=== PATIENT | female | born 1990 ===

== ENCOUNTER 2017-06-22 13:28 | Inpatient (IN) | payer OTHER ==
[2017-06-22 13:36] VITALS: BMI 30.1
[2017-06-22] MEDS ORDERED: Sodium Chloride 0.9% 1,000 ML IV ONE (13:50)
[2017-06-22 14:08] LABS: BASO # 0.1 K/uL (0.0-0.2); BASO % 0.4 % (0.0-2.0); EOS % 0.3 % (0.0-4.0); HEMATOCRIT 36.2 % (34.0-47.0); LYMPH # 1.4 K/uL (1.0-4.3); LYMPH % 7.1 % (20.0-40.0); MEAN CELL VOLUME 86.5 fL (81.0-99.0); MEAN CORPUSCULAR HEMOGLOBIN 28.9 pg (27.0-31.0); MEAN CORPUSCULAR HGB CONC 33.4 g/dL (33.0-37.0); MEAN PLATELET VOLUME 9.3 fL (7.2-11.7); MONO # 1.3 K/uL (0.0-0.8); MONO % 6.5 % (0.0-10.0); PLATELET COUNT 288 K/uL (130-400); RED CELL DISTRIBUTION WIDTH 13.2 % (11.5-14.5); WHITE BLOOD COUNT 19.2 K/uL (4.8-10.8)
[2017-06-22 14:16] LABS: RBC URINE 83 /hpf (0-3); URINE BACTERIA RARE (<OCC); URINE BILIRUBIN NEGATIVE (NEGATIVE); URINE BLOOD 2+ (NEGATIVE); URINE COLOR Yellow (YELLOW); URINE GLUCOSE (UA) NORMAL (Normal); URINE KETONE NEGATIVE (NEGATIVE); URINE LEUKOCYTE ESTERASE 3+ Leu/uL (Negative); URINE PROTEIN NEGATIVE (NEGATIVE); URINE UROBILINOGEN NORMAL mg/dL (0.2-1.0); WBC URINE 99 /hpf (0-5)
[2017-06-22] MEDS ORDERED: Sodium Chloride 0.9% 1,000 ML ONE (14:16)
[2017-06-22 14:26] LABS: ALB/GLOB RATIO 1.1 (1.0-2.1); ALKALINE PHOSPHATASE 80 U/L (38-126); ALT/SGPT 31 U/L (9-52); AST/SGOT 24 U/L (14-36); BILIRUBIN,TOTAL 0.6 mg/dL (0.2-1.3); BLOOD UREA NITROGEN 5 mg/dL (7-17); CALCIUM 8.6 mg/dl (8.6-10.4); CARBON DIOXIDE 23 mmol/L (22-30); CHLORIDE 102 mmol/L (98-107); GFR AFRICAN-AMERICAN > 60; GLUCOSE,RANDOM 103 mg/dL (65-105); MAGNESIUM 1.5 mg/dL (1.6-2.3); SODIUM 136 mmol/L (132-148); TOTAL PROTEIN 6.3 g/dL (6.3-8.3)
[2017-06-22 14:40] LABS: NEUTROPHIL 83 % (50-75); REACTIVE LYMPHOCYTES 1 % (0-0); TOTAL CELLS COUNTED 100
[2017-06-22 14:57] LABS: POTASSIUM 3.2 mmol/L (3.6-5.2)
--- NOTE | 2017-06-22 15:06 | US ---
Indication: ? vaginal "leaking", no vaginal bleeding Comparison: None available Technique: Real-time ultrasound was performed through the pelvis. Findings: There is a single living fetus in breech presentation. No amniotic fluid is identified. Posterior placenta. The placenta is not previa. There are no adnexal masses or cysts evident. Cervix length measures approximately 4.5 cm. Measurements and calculations: Fetus has a composite sonographic age of 17 weeks 2 days. This calculation is based on the biparietal diameter, head circumference, abdominal circumference, and femur length. Estimated heart rate 133.9 beats per min. Impression: No amniotic fluid identified. Single living fetus with a composite sonographic age of 17 weeks 2 days. Estimated heart rate 133.9 beats per min. Emergent findings discussed with Irene Chacon on 06/22/17 at 3:03 p.m.
--- NOTE | 2017-06-22 15:07 | US ---
HISTORY: B/L lower abdominal pain radiating to back COMPARISON: None available TECHNIQUE: Sonographic evaluation of the abdomen. FINDINGS: LIVER: Measures 15.6 cm in sagittal dimension. Echogenic liver may be seen in setting of hepatic parenchymal disease or fatty infiltration. No focal hepatic mass identified. The main portal vein appears patent with normal directional flow. No intrahepatic bile duct dilatation. GALLBLADDER: Gallstones. No gallbladder wall thickening. Negative sonographic Carpenter's sign as assessed by the cash processing specialist. COMMON BILE DUCT: Measures 2 mm. PANCREAS: Not well visualized. RIGHT KIDNEY: Measures 11.7 x 5.7 x 6.2cm. No obstructing calculus or hydronephrosis identified. LEFT KIDNEY: Measures 11.1 x 6.1 x 5.4cm. No obstructing calculus or hydronephrosis identified. SPLEEN: Measures approximately 9.9 cm. AORTA: Limited views appear unremarkable. IVC: Limited views appear unremarkable. OTHER FINDINGS: None. IMPRESSION: Echogenic liver may be seen in setting of hepatic parenchymal disease or fatty infiltration. Cholelithiasis.
--- NOTE | 2017-06-22 16:18 | C.PDOC ---
History Of Present Illness 27 y/o female presents to ED with complaints of clear odorless liquid draining vaginally since approximately 5am this morning. Patient states has had several episodes throughout day and reports ultrasound done by private OB last week with unknown results. Patient denies fever, nausea, vomiting, vaginal bleed , back pain or any other complaints at this time. Chief Complaint (Nursing): Female Genitourinary History Per: Patient History/Exam Limitations: no limitations Onset/Duration Of Symptoms: Hrs Current Symptoms Are (Timing): Still Present Past Medical History Reviewed: Historical Data, Nursing Documentation, Vital Signs Vital Signs: Last Vital Signs Temp 96.7 F L 06/22/17 19:40 Pulse 102 H 06/22/17 16:16 Resp 18 06/22/17 16:16 BP 133/82 06/22/17 16:16 Pulse Ox 99 06/22/17 16:25 Family History: States: No Known Family Hx - Social History Hx Alcohol Use: No Hx Substance Use: No Review Of Systems Except As Marked, All Systems Reviewed And Found Negative. Constitutional: Negative for: Fever, Chills Gastrointestinal: Negative for: Nausea, Vomiting, Diarrhea Genitourinary: Positive for: Vaginal Discharge. Negative for: Dysuria Musculoskeletal: Negative for: Back Pain Skin: Negative for: Rash Physical Exam - Physical Exam Appears: Non-toxic, No Acute Distress Skin: Normal Color, Warm, No Rash Head: Atraumatic, Normacephalic Eye(s): bilateral: Normal Inspection, EOMI Oral Mucosa: Moist Cardiovascular: Rhythm Regular Respiratory: Normal Breath Sounds, No Rales, No Rhonchi, No Wheezing Gastrointestinal/Abdominal: Tenderness (Mild lower abdomen), No Guarding, No Rebound Pelvic: Other (Uterus 3cm below fundal height at the umbilicus) Neurological/Psych: Oriented x3, Normal Speech ED Course And Treatment - Laboratory Results Result Diagrams: 06/22/17 14:05 06/22/17 14:05 O2 Sat by Pulse Oximetry: 99 (RA) Pulse Ox Interpretation: Normal - CT Scan/US Abdomen Other Rad Studies (CT/US): Interpreted By Me, Read By Radiologist, Radiology Report Reviewed CT/US Interpretation: FINDINGS: LIVER: Measures 15.6 cm in sagittal dimension. Echogenic liver may be seen in setting of hepatic parenchymal disease or fatty infiltration. No focal hepatic mass identified. The main portal vein appears patent with normal directional flow. No intrahepatic bile duct dilatation. GALLBLADDER: Gallstones. No gallbladder wall thickening. Negative sonographic Carpenter's sign as assessed by the tea taster. COMMON BILE DUCT: Measures 2 mm. PANCREAS: Not well visualized. RIGHT KIDNEY: Measures 11.7 x 5.7 x 6.2cm. No obstructing calculus or hydronephrosis identified. LEFT KIDNEY: Measures 11.1 x 6.1 x 5.4cm. No obstructing calculus or hydronephrosis identified. SPLEEN: Measures approximately 9.9 cm. AORTA: Limited views appear unremarkable. IVC: Limited views appear unremarkable. OTHER FINDINGS: None. IMPRESSION: Echogenic liver may be seen in setting of hepatic parenchymal disease or fatty infiltration. Cholelithiasis. OB Other Rad Studies (CT/US): Interpreted By Me, Read By Radiologist, Radiology Report Reviewed CT/US Interpretation: Indication: ? vaginal "leaking", no vaginal bleeding. Comparison: None available. Technique: Real-time ultrasound was performed through the pelvis. Findings: There is a single living fetus in breech presentation. No amniotic fluid is identified. Posterior placenta. The placenta is not previa. There are no adnexal masses or cysts evident. Cervix length measures approximately 4.5 cm. Measurements and calculations: Fetus has a composite sonographic age of 17 weeks 2 days. This calculation is based on the biparietal diameter, head circumference, abdominal circumference, and femur length. Estimated heart rate 133.9 beats per min. Impression: No amniotic fluid identified. Single living fetus with a composite sonographic age of 17 weeks 2 days. Estimated heart rate 133.9 beats per min. Emergent findings discussed with Irene Chacon on 06/22/17 at 3:03 p.m. Medical Decision Making Medical Decision Making: Spoke with Ob contract modeler Dr. Castañeda who came down to examine patient Patient agrees to admission for further management Disposition - Disposition Disposition: HOSPITALIZED Disposition Time: 16:00 Condition: STABLE - Clinical Impression Clinical Impression: NO AMIONIC FLUID ABDOMINAL PAIN - Scribe Statement The provider has reviewed the documentation as recorded by the Fuentesibe Kate Gomez All medical record entries made by the Fuentesibpedro were at my direction and personally dictated by me. I have reviewed the chart and agree that the record accurately reflects my personal performance of the history, physical exam, medical decision making, and the department course for this patient. I have also personally directed, reviewed, and agree with the discharge instructions and disposition.
--- NOTE | 2017-06-22 17:34 | OBHP ---
Datetime: 06/22/2017 17:25 IP Adm Impression: , intrauterine ; Ruptured Membranes IP Admit Plan: Admit to unit Admit Comment, IP Provider: at 18weeks came with lof started qat 5 am. pt thought having urinat ion.no pain no vb. pt is going to dr olson. obhx 1 x pmh den med pnv all nkda psh den soch den sse +pooling sono breech/post/no amniotic fluid. a/p at 18weeks pprom/ non viable prega dmit to l_d. pt is crying and not ready for induction. pt called her pmd who told her that she sh uld stay here. she wanted to go to [facility], [place]. pt was told if she doesnot want any induction she can sig n out AMA. pt after long discusion with family decided to stay. amp/geb/clin labs will start induction with cytotec when pateint is ready pain management Anticipate non viable delivery Pelvic Type - PN: Adequate Extremities - PN: Normal Abdomen - PN: Normal Back - PN: Normal Breast - PN: Not Done Lungs - PN: Normal Heart - PN: Normal Thyroid - PN: Not Done Neurologic - PN: Normal HEENT - PN: Normal General - PN: Normal Comments, ACOG Physical Exam: 18weeks gravid ext no edema,no calf ten sse +pooling EGA AdmitDate IP: 18.6 Vital Signs Provider: Reviewed; Within Normal Limits IP Indication for Induction: Other IP Indication for Induction Oth: pprom IP Chief Complaint: Suspected ruptured membranes Dilatation, Provider: 0 Effacement, Provider: 0 Station, Provider: -3 Genitourinary Exam: Normal DTRs - PN: Normal
[2017-06-22] MEDS: Clindamycin 600 MG in Sodium Chloride 0.9% 100 ML IV SCH (17:37)
--- NOTE | 2017-06-22 18:57 | OBPN ---
Datetime: 06/22/2017 18:54 IP Progress Note Comment: trnalation with phone wa done. test and balance engineer [phone] edwige. the management was discussed in detail with alternatives .all the questions were answered. pt is c rying and not ready for indction. pt was told when she is ready we can start induction with cytotec. cont iv antibiotics pain management all questions answered with dispensing optician apprentice. pt understand and agrees Datetime: 06/22/2017 17:25 Vital Signs Provider: Reviewed; Within Normal Limits Dilatation, Provider: 0 Effacement, Provider: 0 Station, Provider: -3
[2017-06-22] MEDS ORDERED: Nalbuphine 20 mg/ml Inj (1 ml) ONE (23:45)
[2017-06-22] MEDS: Nalbuphine 20 mg/ml Inj (1 ml) IVP PRN (23:55)
[2017-06-23] MEDS: Nalbuphine 20 mg/ml Inj (1 ml) IVP PRN (01:05)
[2017-06-23] MEDS: Clindamycin 600 MG in Sodium Chloride 0.9% 100 ML IV SCH ×2 (01:30→09:56)
[2017-06-23] MEDS ORDERED: Oxycodone/Acetaminophen 5/325 mg Tab PO PRN ×2 (02:40)
--- NOTE | 2017-06-23 02:42 | OBDS ---
MATERNAL INFORMATION Provider Comments: baby deliverd spontaneously along with placenta. no coiom. cord was intact. no laceration. baby send to pathology LABOR SUMMARY EDC: 11/17/2017 00:00 LABOR INFORMATION Cervical Ripening Agents: Cytotec @ (Annotations: 200MG GIVEN PO )
[2017-06-23] MEDS ORDERED: Oxytocin 30 UNIT 30 UNITS/500 ML BAG IV SCH (02:45)
[2017-06-23 06:58] LABS: BASO # 0.1 K/uL (0.0-0.2); BASO % 0.2 % (0.0-2.0); HEMATOCRIT 33.6 % (34.0-47.0); LYMPH # 1.7 K/uL (1.0-4.3); MEAN CELL VOLUME 86.5 fL (81.0-99.0); MEAN CORPUSCULAR HEMOGLOBIN 29.4 pg (27.0-31.0); MEAN CORPUSCULAR HGB CONC 33.9 g/dL (33.0-37.0); MEAN PLATELET VOLUME 9.2 fL (7.2-11.7); MONO # 1.9 K/uL (0.0-0.8); MONO % 6.5 % (0.0-10.0); PLATELET COUNT 292 K/uL (130-400); RED CELL DISTRIBUTION WIDTH 13.3 % (11.5-14.5); WHITE BLOOD COUNT 28.4 K/uL (4.8-10.8)
[2017-06-23 07:12] LABS: ALB/GLOB RATIO 1.2 (1.0-2.1); ALKALINE PHOSPHATASE 71 U/L (38-126); ALT/SGPT 29 U/L (9-52); AST/SGOT 16 U/L (14-36); BILIRUBIN,TOTAL 0.4 mg/dL (0.2-1.3); BLOOD UREA NITROGEN 5 mg/dL (7-17); CALCIUM 8.4 mg/dl (8.6-10.4); CARBON DIOXIDE 24 mmol/L (22-30); CHLORIDE 103 mmol/L (98-107); GFR AFRICAN-AMERICAN > 60; GLUCOSE,RANDOM 96 mg/dL (65-105); POTASSIUM 3.9 mmol/L (3.6-5.2); SODIUM 136 mmol/L (132-148); TOTAL PROTEIN 5.6 g/dL (6.3-8.3)
[2017-06-23 09:36] LABS: NEUTROPHIL 82 % (50-75); REACTIVE LYMPHOCYTES 2 % (0-0); TOTAL CELLS COUNTED 100
[2017-06-24 11:38] LABS: BASO % 0.3 % (0.0-2.0); EOS # 0.1 K/uL (0.0-0.7); EOS % 0.9 % (0.0-4.0); HEMATOCRIT 35.9 % (34.0-47.0); LYMPH # 2.3 K/uL (1.0-4.3); LYMPH % 15.9 % (20.0-40.0); MEAN CELL VOLUME 87.2 fL (81.0-99.0); MEAN CORPUSCULAR HEMOGLOBIN 28.8 pg (27.0-31.0); MEAN PLATELET VOLUME 9.1 fL (7.2-11.7); MONO # 1.1 K/uL (0.0-0.8); MONO % 7.3 % (0.0-10.0); RED CELL DISTRIBUTION WIDTH 13.2 % (11.5-14.5); WHITE BLOOD COUNT 14.7 K/uL (4.8-10.8)
--- NOTE | 2017-06-24 13:26 | CP.PCM.DIS ---
Provider - Provider Date of Admission: 06/22/17 16:51 Attending physician: Leon Castañeda MD Time Spent in preparation of Discharge (in minutes): 20 Diagnosis - Discharge Diagnosis (1) Spontaneous Status: Resolved Priority: High Onset Date: ~06/22/17 Comment: Status post uterine evacuation (2) premature rupture of membranes (PPROM) delivered, current hospitalization Status: Acute Priority: High Onset Date: ~06/22/17 Comment: Status post uterine evacuation (3) Leukocytosis, unspecified Status: Acute Priority: High Onset Date: ~06/22/17 Comment: Resolving Hospital Course - Lab Results Lab Results: Micro Results 06/22/17 Unknown Urine Urine Culture - Final No Growth (<1,000 CFU/ML) Most Recent Lab Values WBC 14.7 K/uL (4.8-10.8) H 06/24/17 11:43 RBC 4.12 Mil/uL (3.80-5.20) 06/24/17 11:43 Hgb 11.8 g/dL (11.0-16.0) 06/24/17 11:43 Hct 35.9 % (34.0-47.0) 06/24/17 11:43 MCV 87.2 fL (81.0-99.0) 06/24/17 11:43 MCH 28.8 pg (27.0-31.0) 06/24/17 11:43 MCHC 33.0 g/dL (33.0-37.0) 06/24/17 11:43 RDW 13.2 % (11.5-14.5) 06/24/17 11:43 Plt Count 295 K/uL (130-400) 06/24/17 11:43 MPV 9.1 fL (7.2-11.7) 06/24/17 11:43 Neut % (Auto) 75.6 % (50.0-75.0) H 06/24/17 11:43 Lymph % (Auto) 15.9 % (20.0-40.0) L 06/24/17 11:43 [place] % (Auto) 7.3 % (0.0-10.0) 06/24/17 11:43 Eos % (Auto) 0.9 % (0.0-4.0) 06/24/17 11:43 Baso % (Auto) 0.3 % (0.0-2.0) 06/24/17 11:43 Neut # 11.1 K/uL (1.8-7.0) H 06/24/17 11:43 Lymph # 2.3 K/uL (1.0-4.3) 06/24/17 11:43 [place] # 1.1 K/uL (0.0-0.8) H 06/24/17 11:43 Eos # 0.1 K/uL (0.0-0.7) 06/24/17 11:43 Baso # 0.0 K/uL (0.0-0.2) 06/24/17 11:43 Neutrophils % (Manual) 82 % (50-75) H 06/23/17 06:47 Band Neutrophils % 5 % (0-2) H 06/23/17 06:47 Lymphocytes % (Manual) 7 % (20-40) L 06/23/17 06:47 Reactive Lymphs % 2 % (0-0) H 06/23/17 06:47 Monocytes % (Manual) 4 % (0-10) 06/23/17 06:47 Platelet Estimate Normal (NORMAL) 06/23/17 06:47 RBC Morphology Normal 06/22/17 14:05 Basophilic Stippling Slight 06/23/17 06:47 PT 11.1 SECONDS (9.7-12.2) 06/22/17 15:26 INR 1.0 06/22/17 15:26 APTT 27 SECONDS (21-34) 06/22/17 15:26 Sodium 136 mmol/L (132-148) 06/23/17 06:47 Potassium 3.9 mmol/L (3.6-5.2) 06/23/17 06:47 Chloride 103 mmol/L (98-107) 06/23/17 06:47 Carbon Dioxide 24 mmol/L (22-30) 06/23/17 06:47 Anion Gap 12 (10-20) 06/23/17 06:47 BUN 5 mg/dL (7-17) L 06/23/17 06:47 Creatinine 0.5 MG/DL (0.7-1.2) L 06/23/17 06:47 Est GFR ( Amer) > 60 06/23/17 06:47 Est GFR (Non-Af Amer) > 60 06/23/17 06:47 Random Glucose 96 mg/dL (65-105) 06/23/17 06:47 Calcium 8.4 mg/dl (8.6-10.4) L 06/23/17 06:47 Magnesium 1.5 mg/dL (1.6-2.3) L 06/22/17 14:05 Total Bilirubin 0.4 mg/dL (0.2-1.3) 06/23/17 06:47 AST 16 U/L (14-36) 06/23/17 06:47 ALT 29 U/L (9-52) 06/23/17 06:47 Alkaline Phosphatase 71 U/L (38-126) 06/23/17 06:47 Total Protein 5.6 g/dL (6.3-8.3) L 06/23/17 06:47 Albumin 3.0 g/dL (3.5-5.0) L 06/23/17 06:47 Globulin 2.5 gm/dL (2.2-3.9) 06/23/17 06:47 Albumin/Globulin Ratio 1.2 (1.0-2.1) 06/23/17 06:47 Lipase 29 U/L (23-300) 06/22/17 14:05 Beta HCG, Quant 8621.80 mIU/ML 06/22/17 14:05 Urine Color Yellow (YELLOW) 06/22/17 14:09 Urine Clarity Hazy (Clear) 06/22/17 14:09 Urine pH 6.0 (5.0-8.0) 06/22/17 14:09 Ur Specific [place] 1.018 (1.003-1.030) 06/22/17 14:09 Urine Protein Negative mg/dL (NEGATIVE) 06/22/17 14:09 Urine Glucose (UA) Normal mg/dL (Normal) 06/22/17 14:09 Urine Ketones Negative mg/dL (NEGATIVE) 06/22/17 14:09 Urine Blood 2+ (NEGATIVE) H 06/22/17 14:09 Urine Nitrate Negative (NEGATIVE) 06/22/17 14:09 Urine Bilirubin Negative (NEGATIVE) 06/22/17 14:09 Urine Urobilinogen Normal mg/dL (0.2-1.0) 06/22/17 14:09 Ur Leukocyte Esterase 3+ Ney/uL (Negative) H 06/22/17 14:09 Urine WBC (Auto) 99 /hpf (0-5) H 06/22/17 14:09 Urine RBC (Auto) 83 /hpf (0-3) H 06/22/17 14:09 Ur Squamous Epith Cells 8 /hpf (0-5) H 06/22/17 14:09 Urine Bacteria Rare (<OCC) 06/22/17 14:09 RPR Nonreactive (NONREACTIVE) 06/22/17 17:10 HIV 1&2 Antibody Screen Negative (NEGATIVE) 06/22/17 17:10 Blood Type O POSITIVE 06/22/17 15:26 Antibody Screen Negative 06/22/17 15:26 - Hospital Course Hospital Course: 27 y.o. , at 17weeks 2 days, admitted 06/22/17 with spontaneous rupture of membranes, confirmed by ultrasound. Patient received cytotec; fetus delivered without incident. WBC elevated to 28.4 - maximum; received triple antibiotics (ampicillin, gentamicin, clindamycin). HD#3 WBC declined to 14.7. Patient asymptomatic and remained afebrile throughout hospital course. Discharged home in stable condition. - Date & Time of H&P Date of H&P: 06/22/17 Time of H&P: 15:00 Discharge Exam - Head Exam Head Exam: ATRAUMATIC - Eye Exam Eye Exam: Normal appearance - Neck Exam Neck exam: Full Rom - Respiratory Exam Respiratory Exam: NORMAL BREATHING PATTERN, UNREMARKABLE - Cardiovascular Exam Cardiovascular Exam: REGULAR RHYTHM - GI/Abdominal Exam GI & Abdominal Exam: Normal Bowel Sounds, Soft Additional comments: Non distended. Minimal fundal tenderness. Fundus approx 16 weeks, firm, mobile. - Exam Additional comments: No vaginal bleeding - Extremities Exam Extremities exam: full ROM, normal inspection - Neurological Exam Neurological exam: Alert, Oriented x3 - Psychiatric Exam Psychiatric exam: Normal Affect (Appropriately saddened) - Skin Skin Exam: Dry, Intact, Normal Color, Warm Discharge Plan - Discharge Medications Prescriptions: Amoxicillin/Clavulanate [Augmentin 875 MG-125 MG] 1 tab PO BID #7 tab - Follow Up Plan Condition: STABLE Disposition: HOME/ ROUTINE Instructions: Depression (GEN), Postoperative Bleeding (DC)
[2017-06-24 17:27] VITALS: BP 114/67; PULSE 98; RESP 20; TEMP 99.1; O2SAT 98
== END 2017-06-24 13:24 | disposition home or self-care (01) | DRG 380 ==
LOC: C.ER 13:28 → C.4D 15:56 → OBSVTOIN 16:51 → C.4M 06-23 11:28
PROVIDERS: ADMIT Obstetrics & Gynecology; ATTEND Obstetrics & Gynecology
PROC: 3E0P7GC Introduction of Other Therapeutic Substance into Female Reproductive, Via Natural or Artificial Opening (ICD-10-PCS; principal; 2017-06-22)
DX: O03.9 Complete or unspecified spontaneous abortion without complication (principal); O26.62 Liver and biliary tract disorders in childbirth; O42.919 Preterm premature rupture of membranes, unspecified as to length of time between rupture and onset of labor, unspecified trimester; O99.12 Other diseases of the blood and blood-forming organs and certain disorders involving the immune mechanism complicating childbirth; D72.829 Elevated white blood cell count, unspecified; K80.20 Calculus of gallbladder without cholecystitis without obstruction; O32.1XX0 Maternal care for breech presentation, not applicable or unspecified; Z3A.18 18 weeks gestation of pregnancy

== ENCOUNTER 2017-08-27 00:13 | Emergency (ER) | payer MEDICAID, OTHER ==
[2017-08-27 00:13] VITALS: BMI 30.1
[2017-08-27 00:31] VITALS: TEMP 97.9
[2017-08-27 00:42] LABS: RBC URINE 1 /hpf (0-3); URINE BILIRUBIN NEGATIVE (NEGATIVE); URINE BLOOD 2+ (NEGATIVE); URINE COLOR Colorless (YELLOW); URINE GLUCOSE (UA) NORMAL (Normal); URINE KETONE NEGATIVE (NEGATIVE); URINE LEUKOCYTE ESTERASE NEG Leu/uL (Negative); URINE PROTEIN NEGATIVE (NEGATIVE); URINE UROBILINOGEN NORMAL mg/dL (0.2-1.0); WBC URINE < 1 /hpf (0-5)
--- NOTE | 2017-08-27 00:43 | C.PDOC ---
History Of Present Illness Patient presents to the ED with complaints of abdominal pain for one day. Patient is 7 weeks and denies fever, chills, nausea, vomiting, dysuria , or vaginal bleeding. Time Seen by Provider: 08/27/17 00:42 Chief Complaint (Nursing): Abdominal Pain History Per: Patient History/Exam Limitations: no limitations Onset/Duration Of Symptoms: Days (1 day ) Current Symptoms Are (Timing): Still Present Location Of Pain/Discomfort: Suprapubic Radiation Of Pain To:: None Quality Of Discomfort: Other (discomfort ) Recent travel outside of the [place]: No Abnormal Vaginal Bleeding: No Past Medical History Reviewed: Historical Data, Nursing Documentation, Vital Signs Vital Signs: Last Vital Signs Temp 97.9 F 08/27/17 00:25 Pulse 81 08/27/17 00:25 Resp 20 08/27/17 00:25 BP 130/73 08/27/17 00:25 Pulse Ox 98 08/27/17 02:49 - Medical History PMH: Denies: Depression, Diabetes - [facility] Procedures INTRODUCE OF OTH THERAP SUBST INTO FEM REPROD, VIA OPENING (06/22/17) Family History: States: Unknown Family Hx - Social History Hx Alcohol Use: No Hx Substance Use: No - Immunization History Hx Tetanus Toxoid Vaccination: No Hx Influenza Vaccination: No Hx Pneumococcal Vaccination: No Review Of Systems Constitutional: Negative for: Fever, Chills Gastrointestinal: Positive for: Abdominal Pain. Negative for: Nausea, Vomiting Genitourinary: Negative for: Dysuria, Hematuria, Vaginal Bleeding Physical Exam - Physical Exam Appears: Non-toxic, No Acute Distress Skin: Warm, Dry Head: Atraumatic Eye(s): bilateral: Normal Inspection Oral Mucosa: Moist Neck: Supple Chest: Symmetrical, No Deformity Cardiovascular: Rhythm Regular, No Murmur Respiratory: No Rales, No Rhonchi, No Wheezing Gastrointestinal/Abdominal: Soft, Tenderness (mild suprapubic discomfort ), No Distention, No Guarding, No Rebound Neurological/Psych: Oriented x3 ED Course And Treatment - Laboratory Results Result Diagrams: 08/27/17 01:06 08/27/17 01:06 O2 Sat by Pulse Oximetry: 98 (RA) Pulse Ox Interpretation: Normal Progress Note: Labs and transvaginal US was ordered. Patient was given IV fluids. Reevaluation Time: 04:08 Reassessment Condition: Improved Disposition Counseled Patient/Family Regarding: Studies Performed, Diagnosis, Need For Followup - Disposition Referrals: Heriberto Sow MD [Staff Provider] - Disposition: HOME/ ROUTINE Disposition Time: 00:43 Condition: FAIR Instructions: Threatened Miscarriage (ED), Subchorionic Hemorrhage (ED) Forms: [employer] (Divehi) Print Language: HEBREW - Clinical Impression Clinical Impression: Threatened , Subchorionic hemorrhage - Scribe Statement The provider has reviewed the documentation as recorded by the Scribe Bettina Patrick All medical record entries made by the Scribe were at my direction and personally dictated by me. I have reviewed the chart and agree that the record accurately reflects my personal performance of the history, physical exam, medical decision making, and the department course for this patient. I have also personally directed, reviewed, and agree with the discharge instructions and disposition.
[2017-08-27] MEDS ORDERED: Sodium Chloride 0.9% 1,000 ML IV ONE (00:45)
[2017-08-27 01:16] LABS: BASO # 0.1 K/uL (0.0-0.2); BASO % 0.4 % (0.0-2.0); EOS # 0.1 K/uL (0.0-0.7); EOS % 0.9 % (0.0-4.0); HEMATOCRIT 40.7 % (34.0-47.0); LYMPH # 3.5 K/uL (1.0-4.3); LYMPH % 28.4 % (20.0-40.0); MEAN CELL VOLUME 85.9 fL (81.0-99.0); MEAN CORPUSCULAR HEMOGLOBIN 28.4 pg (27.0-31.0); MONO # 1.1 K/uL (0.0-0.8); RED CELL DISTRIBUTION WIDTH 13.1 % (11.5-14.5); WHITE BLOOD COUNT 12.2 K/uL (4.8-10.8)
[2017-08-27 01:21] LABS: CHLORIDE 100 mmol/L (98-107); POTASSIUM 4.1 mmol/L (3.6-5.2); SODIUM 133 mmol/L (132-148)
[2017-08-27 01:23] LABS: BILIRUBIN,TOTAL 0.5 mg/dL (0.2-1.3); GFR AFRICAN-AMERICAN > 60
[2017-08-27 01:24] LABS: ALB/GLOB RATIO 1.1 (1.0-2.1); ALKALINE PHOSPHATASE 63 U/L (38-126); ALT/SGPT 34 U/L (9-52); AST/SGOT 27 U/L (14-36); BLOOD UREA NITROGEN 12 mg/dL (7-17); CARBON DIOXIDE 23 mmol/L (22-30); GLUCOSE,RANDOM 76 mg/dL (65-105); TOTAL PROTEIN 7.7 g/dL (6.3-8.3)
[2017-08-27 01:25] LABS: CALCIUM 9.3 mg/dl (8.6-10.4)
--- NOTE | 2017-08-27 04:04 | US ---
EXAM: US , Transvaginal CLINICAL HISTORY: 27 years old, female; Pain; complicated by abdominal or pelvic pain; Lower; First trimester; Gestational age or lmp: 06-25-2017; ; Additional info: 7 weeks preg, abd pain, cramps TECHNIQUE: Real-time transvaginal obstetrical ultrasound of the maternal pelvis and a first trimester with image documentation. Transvaginal imaging was used for better evaluation of the fetus and adnexa. COMPARISON: US - OB , LIMITED 06/22/2017 2:33:13 PM FINDINGS: Gestation: Single live intrauterine gestation. heart rate of 128 beats per minute. [place]-rump length of 0.86 cm, correlating with gestational age of 6 weeks 6 days. Mean sac diameter of 1.36 cm, correlating with gestational age of 5 weeks 4 days. Uterus/cervix: 0.7 x 0.4 x 0.8 cm collection along gestational sac. No cervical dilatation or effacement. Ovaries: Normal ovaries. No adnexal masses. Free fluid: No significant free fluid. IMPRESSION: 1. Single live intrauterine gestation. 2. Subchorionic hemorrhage. EXAM: US First Trimester, Transabdominal CLINICAL HISTORY: 27 years old, female; Pain; complicated by abdominal or pelvic pain; Lower; First trimester; Gestational age or lmp: 06-25-2017; ; Additional info: 7 weeks preg, abd pain, cramps TECHNIQUE: Real-time transabdominal obstetrical ultrasound of the maternal pelvis and a first trimester with image documentation. COMPARISON: US - OB , LIMITED 06/22/2017 2:33:13 PM FINDINGS: Gestation: Single live intrauterine gestation. heart rate of 128 beats per minute. [place]-rump length of 0.86 cm, correlating with gestational age of 6 weeks 6 days. Mean sac diameter of 1.36 cm, correlating with gestational age of 5 weeks 4 days. Uterus/cervix: 0.7 x 0.4 x 0.8 cm collection along gestational sac. No cervical dilatation or effacement. Ovaries: Normal ovaries. No adnexal masses. Free fluid: No significant free fluid.
[2017-08-27 04:16] VITALS: BP 112/55; PULSE 85; RESP 15; O2SAT 97
== END 2017-08-27 04:12 | disposition home or self-care (01) ==
LOC: C.ER 00:13
DX: O20.0 Threatened abortion (principal); Z3A.01 Less than 8 weeks gestation of pregnancy
CPT/HCPCS: 76805; 76817; 80053; 81001; 84702; 84703; 85025; 85610; 85730; 86850; 86900; 96360; 99284; J7040

== ENCOUNTER 2017-08-27 23:52 | Emergency (ER) | payer OTHER ==
[2017-08-27 23:52] VITALS: BMI 30.1
[2017-08-28 00:08] VITALS: RESP 18
[2017-08-28 00:44] LABS: RBC URINE 313 /hpf (0-3); URINE BACTERIA OCC (<OCC); URINE BILIRUBIN NEGATIVE (NEGATIVE); URINE BLOOD 3+ (NEGATIVE); URINE COLOR Yellow (YELLOW); URINE GLUCOSE (UA) NORMAL (Normal); URINE KETONE NEGATIVE (NEGATIVE); URINE LEUKOCYTE ESTERASE NEG Leu/uL (Negative); URINE PROTEIN NEGATIVE (NEGATIVE); URINE UROBILINOGEN NORMAL mg/dL (0.2-1.0); WBC URINE 3 /hpf (0-5)
[2017-08-28 00:45] LABS: BASO % 0.4 % (0.0-2.0); EOS # 0.1 K/uL (0.0-0.7); EOS % 0.5 % (0.0-4.0); HEMATOCRIT 40.2 % (34.0-47.0); LYMPH # 2.7 K/uL (1.0-4.3); MEAN CELL VOLUME 86.6 fL (81.0-99.0); MEAN CORPUSCULAR HEMOGLOBIN 28.9 pg (27.0-31.0); MEAN CORPUSCULAR HGB CONC 33.4 g/dL (33.0-37.0); MEAN PLATELET VOLUME 9.3 fL (7.2-11.7); MONO # 0.9 K/uL (0.0-0.8); MONO % 7.8 % (0.0-10.0); RED CELL DISTRIBUTION WIDTH 13.1 % (11.5-14.5); WHITE BLOOD COUNT 11.6 K/uL (4.8-10.8)
[2017-08-28 00:53] LABS: CHLORIDE 100 mmol/L (98-107); POTASSIUM 3.6 mmol/L (3.6-5.2); SODIUM 133 mmol/L (132-148)
[2017-08-28 00:54] LABS: INR 1.1
[2017-08-28 00:55] LABS: AST/SGOT 23 U/L (14-36); BILIRUBIN,TOTAL 0.5 mg/dL (0.2-1.3); CARBON DIOXIDE 25 mmol/L (22-30); GFR AFRICAN-AMERICAN > 60
[2017-08-28 00:56] LABS: ALB/GLOB RATIO 1.2 (1.0-2.1); ALKALINE PHOSPHATASE 63 U/L (38-126); ALT/SGPT 36 U/L (9-52); BLOOD UREA NITROGEN 13 mg/dL (7-17); CALCIUM 9.3 mg/dl (8.6-10.4); GLUCOSE,RANDOM 75 mg/dL (65-105); TOTAL PROTEIN 7.9 g/dL (6.3-8.3)
--- NOTE | 2017-08-28 01:06 | C.PDOC ---
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 Denies Pain. Time Seen by Provider: 08/28/17 00:34 Chief Complaint (Nursing): Female Genitourinary History Per: Patient History/Exam Limitations: no limitations Onset/Duration Of Symptoms: Hrs (1) Current Symptoms Are (Timing): Still Present Severity: Mild Quality Of Discomfort: denies: "Pain" Recent travel outside of the [place] States: No Additional History Per: Patient Last Menstral Period: June 30 Past Medical History Reviewed: Historical Data, Nursing Documentation, Vital Signs Vital Signs: Last Vital Signs Temp 98.2 F 08/28/17 00:02 Pulse 98 H 08/28/17 00:02 Resp 18 08/28/17 00:02 BP 133/83 08/28/17 00:02 Pulse Ox 98 08/28/17 01:09 - Medical History PMH: Denies: Depression, Diabetes, HTN - [facility] Procedures INTRODUCE OF OTH THERAP SUBST INTO FEM REPROD, VIA OPENING (06/22/17) Family History: States: Unknown Family Hx - Social History Hx Alcohol Use: No Hx Substance Use: No - Immunization History Hx Tetanus Toxoid Vaccination: No Hx Influenza Vaccination: No Hx Pneumococcal Vaccination: No Review Of Systems Except As Marked, All Systems Reviewed And Found Negative. Gastrointestinal: Negative for: Abdominal Pain Genitourinary: Positive for: Vaginal Bleeding. Negative for: Pelvic Pain Physical Exam - Physical Exam Appears: Non-toxic, No Acute Distress Skin: Warm, Dry Head: Atraumatic, Normacephalic Chest: Symmetrical Cardiovascular: Rhythm Regular, No Murmur Respiratory: Normal Breath Sounds, No Rales, No Rhonchi, No Wheezing Gastrointestinal/Abdominal: Soft, No Tenderness Pelvic: Normal External Exam, No Vaginal Bleeding (No active bleeding. Minimal old blood in vaginal vault), No Cervix Open Neurological/Psych: Oriented x3, Normal Speech Gait: Steady ED Course And Treatment - Laboratory Results Result Diagrams: 08/28/17 00:38 08/28/17 00:38 O2 Sat by Pulse Oximetry: 98 (RA) Pulse Ox Interpretation: Normal Medical Decision Making Medical Decision Making: Plans: * Blood labs * UA * US Pelvis Disposition Counseled Patient/Family Regarding: Diagnosis - Disposition Referrals: [facility] [Outside] Disposition: HOME/ ROUTINE Disposition Time: 03:13 Condition: STABLE Instructions: Threatened Miscarriage (ED), First Trimester Vaginal Bleed (ED) Forms: [facility] (Martiniquais), Gen Discharge Inst Estonian Print Language: ROMANSH - POA Present On Arrival: None - Clinical Impression Clinical Impression: Threatened , Bleeding in early - Scribe Statement The provider has reviewed the documentation as recorded by the Scribe Genoveva guillen All medical record entries made by the Scribe were at my direction and personally dictated by me. I have reviewed the chart and agree that the record accurately reflects my personal performance of the history, physical exam, medical decision making, and the department course for this patient. I have also personally directed, reviewed, and agree with the discharge instructions and disposition.
--- NOTE | 2017-08-28 03:07 | US ---
EXAM: US , Transvaginal CLINICAL HISTORY: 27 years old, female; Signs and symptoms; Lmp or gestational age (in weeks): 06/25/17; Antepartum complications; Bleeding; ; Additional info: Vaginal bleed TECHNIQUE: Real-time transvaginal obstetrical ultrasound of the maternal pelvis and a first trimester with image documentation. Transvaginal imaging was used for better evaluation of the fetus and adnexa. COMPARISON: US - PREG 1ST TRIMESTER/OB TV 08/27/2017 3:05:06 AM FINDINGS: Gestation: Single live intrauterine gestation. heart rate of 140 beats per minute. [place]-rump length of 0.96 cm, correlating with gestational age of 7 weeks 0 days. Uterus/cervix: 0.5 x 0.4 x 0.3 cm collection along gestational sac. No cervical dilatation or effacement. Ovaries: Normal ovaries. No adnexal masses. Free fluid: No significant free fluid. IMPRESSION: 1. Single live intrauterine gestation. 2. Subchorionic hemorrhage.
[2017-08-28 03:26] VITALS: BP 113/70; PULSE 80; TEMP 98.1; O2SAT 99
== END 2017-08-28 03:26 | disposition home or self-care (01) ==
LOC: C.ER 23:52
DX: O20.0 Threatened abortion (principal); Z3A.01 Less than 8 weeks gestation of pregnancy

== ENCOUNTER 2018-05-27 20:37 | Emergency (ER) | payer OTHER ==
[2018-05-27 20:37] VITALS: BMI 30.1
[2018-05-27 20:54] VITALS: BP 123/75
[2018-05-27 20:58] VITALS: TEMP 98.5
[2018-05-27] MEDS ORDERED: Albuterol-Ipratrop 3 mg / 0.5 (3 ml) UD INH STA ×2 (21:05→22:55)
--- NOTE | 2018-05-27 21:08 | C.PDOC ---
History Of Present Illness 28 y/o female presents to ed with 4 day hx of dry hacking cough. sore throat, body aches and headaches.no sick contacts.no recent travel. taking dayquil and nyquil with no relief. Time Seen by Provider: 05/27/18 20:56 Chief Complaint (Nursing): Cough, Cold, Congestion History Per: Patient History/Exam Limitations: no limitations Onset/Duration Of Symptoms: Days (4) Current Symptoms Are (Timing): Still Present Location Of Pain: Throat, Diffuse Myalgias, Headache Sick Contacts (Context): None Associated Symptoms: Sore Throat, Cough, Myalgias Ear Symptoms: Bilateral: None Recent travel outside of the [place]: No Additional History Per: Patient Past Medical History Reviewed: Historical Data, Nursing Documentation, Vital Signs Vital Signs: Last Vital Signs Temp 98.5 F 05/27/18 20:57 Pulse 86 05/27/18 21:51 Resp 18 05/27/18 21:51 BP 123/75 05/27/18 20:46 Pulse Ox 95 05/28/18 06:18 - Medical History PMH: No Chronic Diseases Denies: Depression, Diabetes, HTN Surgical History: No Surg Hx - [facility] Procedures INTRODUCE OF OTH THERAP SUBST INTO FEM REPROD, VIA OPENING (06/22/17) Family History: States: Unknown Family Hx - Social History Hx Alcohol Use: No Hx Substance Use: No - Immunization History Hx Tetanus Toxoid Vaccination: No Hx Influenza Vaccination: No Hx Pneumococcal Vaccination: No Review Of Systems Constitutional: Positive for: Malaise. Negative for: Fever, Chills ENT: Positive for: Throat Pain. Negative for: Ear Discharge, Nose Discharge Cardiovascular: Negative for: Chest Pain Respiratory: Positive for: Cough, Shortness of Breath Gastrointestinal: Negative for: Nausea, Vomiting, Abdominal Pain Skin: Negative for: Rash Neurological: Negative for: Weakness, Numbness Physical Exam - Physical Exam Appears: Non-toxic, No Acute Distress, Other (uncomfortable, persistent cough) Skin: Normal Color, Warm, Dry Head: Atraumatic, Normacephalic Eye(s): bilateral: Normal Inspection Ear(s): Bilateral: Normal Oral Mucosa: Moist Lips: Normal Appearing Throat: Normal, No Erythema, No Exudate Neck: Normal ROM, Supple Chest: Symmetrical Cardiovascular: Rhythm Regular (tachycardic) Respiratory: Normal Breath Sounds, No Rales, No Rhonchi, No Wheezing, Other ( dry hacking cough) Gastrointestinal/Abdominal: Soft, No Tenderness, No Guarding, No Rebound Extremity: Normal ROM, No Tenderness, No Swelling Neurological/Psych: Oriented x3, Normal Speech, Normal Cognition Gait: Steady ED Course And Treatment O2 Sat by Pulse Oximetry: 95 (ON RA) Pulse Ox Interpretation: Normal Medical Decision Making Medical Decision Making: Impression: cough, sore throat Plan: * CXR * Duoneb 3 ml INH X2 * Tessalon pearls 100 mg PO * prednisone 60 mg PO Patient improved after medication was given. Patient is showing no signs of acute distress, breathing with no difficulty and stable for D/C home. Patient is advised to follow up with PMD for further evaluation. Disposition Counseled Patient/Family Regarding: Studies Performed, Diagnosis, Need For Followup, Rx Given - Disposition Referrals: [facility] [Outside] Disposition: HOME/ ROUTINE Disposition Time: 22:49 Condition: IMPROVED Prescriptions: Albuterol 0.083% [Albuterol 0.083% Inhal Terese (2.5 mg/3 ml) UD] 2.5 mg IH Q4 # 100 neb Albuterol HFA [Ventolin HFA 90 mcg/actuation (8 g)] 2 puff IH Q6 #1 inhaler Azithromycin [Z-Cristino] 250 mg PO DAILY #6 tab Benzonatate [Tessalon Perles] 100 mg PO TID #20 sgl Nebulizer [Compact Compressor Nebulizer] 1 dev INH PRN PRN #1 dev PRN Reason: Cough And Congestion predniSONE [predniSONE Tab] 2 tab PO DAILY #8 tab Instructions: Upper Respiratory Infection (ED) Forms: Gen Discharge Inst Bermudian, [facility] (Bermudian) Print Language: CYMRO - Clinical Impression Clinical Impression: Upper respiratory infection
[2018-05-27] MEDS ORDERED: Albuterol-Ipratrop 3 mg / 0.5 (3 ml) UD ONE ×2 (21:15→22:58)
[2018-05-27 21:51] VITALS: PULSE 86; RESP 18
[2018-05-27 22:51] VITALS: O2SAT 95
--- NOTE | 2018-05-28 12:39 | RAD ---
Date of service: 05/27/2018 HISTORY: cough dec bs right base COMPARISON: No prior. TECHNIQUE: Chest PA and lateral FINDINGS: LUNGS: Increased bronchovascular markings bilaterally. No focal consolidation. PLEURA: No significant pleural effusion identified. No pneumothorax apparent. CARDIOVASCULAR: Normal. OSSEOUS STRUCTURES: No significant abnormalities. VISUALIZED UPPER ABDOMEN: Normal. OTHER FINDINGS: None. IMPRESSION: Increased bronchovascular markings bilaterally.
== END 2018-05-27 23:20 | disposition home or self-care (01) ==
LOC: C.ER 20:37
DX: J06.9 Acute upper respiratory infection, unspecified (principal)

== ENCOUNTER 2018-05-30 11:06 | Emergency (ER) | payer OTHER ==
[2018-05-30 11:11] VITALS: BMI 28.5
[2018-05-30] MEDS ORDERED: Albuterol-Ipratrop 3 mg / 0.5 (3 ml) UD ONE ×3 (11:31→12:46)
[2018-05-30] MEDS ORDERED: Albuterol-Ipratrop 3 mg / 0.5 (3 ml) UD INH STA ×3 (12:05→13:13)
[2018-05-30 12:32] LABS: BASO # 0.1 K/uL (0.0-0.2); BASO % 0.4 % (0.0-2.0); EOS # 0.2 K/uL (0.0-0.7); EOS % 1.2 % (0.0-4.0); LYMPH % 27.2 % (20.0-40.0); MEAN CORPUSCULAR HEMOGLOBIN 28.6 pg (27.0-31.0); MEAN CORPUSCULAR HGB CONC 33.9 g/dL (33.0-37.0); MEAN PLATELET VOLUME 8.7 fL (7.2-11.7); MONO # 1.1 K/uL (0.0-0.8); MONO % 7.6 % (0.0-10.0); NEUT # 9.3 K/uL (1.8-7.0); NEUT % 63.6 % (50.0-75.0); RBC 4.54 Mil/uL (3.80-5.20); RED CELL DISTRIBUTION WIDTH 14.1 % (11.5-14.5); WHITE BLOOD COUNT 14.6 K/uL (4.8-10.8)
--- NOTE | 2018-05-30 12:32 | C.PDOC ---
History Of Present Illness 28 y/o female presents to ED with c/o dry cough for 7 days associated with sob. Patient was seen 3 days ago at ED, discharged with antibiotics and inhaler, currently states no improvement. Patient denies being a smoker, history of asthma, recent travel, abdominal pain, sick contacts or any other complaints at this time. Time Seen by Provider: 05/30/18 11:38 Chief Complaint (Nursing): Cough, Cold, Congestion History Per: Patient History/Exam Limitations: no limitations Onset/Duration Of Symptoms: Days Current Symptoms Are (Timing): Still Present Associated Symptoms: Cough Past Medical History Reviewed: Historical Data, Nursing Documentation, Vital Signs Vital Signs: Last Vital Signs Temp 98.8 F 05/30/18 16:18 Pulse 93 H 05/30/18 16:18 Resp 16 05/30/18 16:18 BP 117/76 05/30/18 16:18 Pulse Ox 99 05/30/18 16:18 - Medical History PMH: No Chronic Diseases Surgical History: No Surg Hx - [facility] Procedures INTRODUCE OF OTH THERAP SUBST INTO FEM REPROD, VIA OPENING (06/22/17) Family History: States: No Known Family Hx - Social History Hx Alcohol Use: No Hx Substance Use: No - Immunization History Hx Tetanus Toxoid Vaccination: No Hx Influenza Vaccination: No Hx Pneumococcal Vaccination: No Review Of Systems Except As Marked, All Systems Reviewed And Found Negative. Respiratory: Positive for: Cough, Shortness of Breath Physical Exam - Physical Exam Appears: Non-toxic, No Acute Distress Skin: Warm, Dry, No Rash Head: Atraumatic, Normacephalic Eye(s): bilateral: Normal Inspection Oral Mucosa: Moist Neck: Supple Cardiovascular: Rhythm Regular, Other (tachycardic) Respiratory: Decreased Breath Sounds (bilateral with faint expiratory wheeze ), No Rales, No Rhonchi Gastrointestinal/Abdominal: Soft, No Tenderness, No Rebound Extremity: No Pedal Edema, Capillary Refill (<2 seconds) Neurological/Psych: Oriented x3, Normal Speech, Normal Cognition ED Course And Treatment - Laboratory Results Result Diagrams: 05/30/18 12:23 05/30/18 12:23 ECG: Interpreted By Me, Viewed By Me ECG Rhythm: Sinus Tachycardia Interpretation Of ECG: Sinus tach, LVH Rate From EC (BPM) O2 Sat by Pulse Oximetry: 98 (RA) Pulse Ox Interpretation: Normal Medical Decision Making Medical Decision Making: Assessment: Cough, SOB patient resting comfortably. Improved with cough suppressant. Will discharge home and advise follow up wiht pmd within 2 days Disposition Counseled Patient/Family Regarding: Studies Performed, Diagnosis, Need For Followup, Rx Given - Disposition Referrals: [facility] [Outside] Disposition: HOME/ ROUTINE Disposition Time: 16:11 Condition: IMPROVED Additional Instructions: follow up with your doctor or medical clinic within 2 days call to make an appointment continue breathing treatment at home return to hospital if symptoms worsens or progress Prescriptions: predniSONE [predniSONE Tab] 50 mg PO DAILY #4 tab Promethazine/Codeine [Phenergan/Codeine Oral Syrup] 5 ml PO QPM #60 ml Instructions: Acute Bronchitis Forms: Gen Discharge Inst Stateless, [employer] [facility] (Stateless), Work Excuse Print Language: BRAZILIAN - Clinical Impression Clinical Impression: Bronchitis - Scribe Statement The provider has reviewed the documentation as recorded by the Tatyana Gomez All medical record entries made by the Fuentesibpedro were at my direction and personally dictated by me. I have reviewed the chart and agree that the record accurately reflects my personal performance of the history, physical exam, medical decision making, and the department course for this patient. I have also personally directed, reviewed, and agree with the discharge instructions and disposition.
--- NOTE | 2018-05-30 12:35 | RAD ---
Date of service: 05/30/2018 HISTORY: SOB COMPARISON: Comparison chest dated 05/27/2018. TECHNIQUE: Chest PA and lateral FINDINGS: LUNGS: Minor bibasilar atelectasis. PLEURA: No significant pleural effusion identified. No pneumothorax apparent. CARDIOVASCULAR: Normal. OSSEOUS STRUCTURES: No significant abnormalities. VISUALIZED UPPER ABDOMEN: Normal. OTHER FINDINGS: None. Minor bibasilar atelectasis. IMPRESSION:
[2018-05-30 12:36] LABS: MEAN CELL VOLUME 84.4 fL (81.0-99.0)
[2018-05-30 12:41] LABS: SQUAMOUS EPITHIAL 1 /hpf (0-5); URINE BILIRUBIN NEGATIVE (NEGATIVE); URINE BLOOD 3+ (NEGATIVE); URINE CLARITY Clear (Clear); URINE COLOR Yellow (YELLOW); URINE GLUCOSE (UA) NORMAL (Normal); URINE LEUKOCYTE ESTERASE NEG Leu/uL (Negative); URINE PROTEIN NEGATIVE (NEGATIVE); URINE UROBILINOGEN NORMAL mg/dL (0.2-1.0)
[2018-05-30 12:43] LABS: ALB/GLOB RATIO 1.5 (1.0-2.1); ALBUMIN 4.3 g/dL (3.5-5.0); ALT/SGPT 36 U/L (9-52); AST/SGOT 15 U/L (14-36); BLOOD UREA NITROGEN 7 mg/dL (7-17); CALCIUM 9.3 mg/dl (8.6-10.4); GFR AFRICAN-AMERICAN > 60; GFR NON-AFRICAN AMERICAN > 60
[2018-05-30] MEDS ORDERED: Potassium Chloride 20 mEq ER Tab PO STA (12:54)
[2018-05-30] MEDS ORDERED: Potassium Chloride 20 mEq ER Tab PO ONE (12:59)
[2018-05-30] MEDS ORDERED: Promethazine/Cod 6.25mg-10mg/5ml Syr UD PO STA (14:34)
[2018-05-30] MEDS ORDERED: Promethazine/Cod 6.25mg-10mg/5ml Syr UD ONE (15:39)
[2018-05-30 16:19] VITALS: BP 117/76; PULSE 93; RESP 16; TEMP 98.8
--- NOTE | 2018-05-30 17:18 | CARD ---
APPROVED REPORT Date of service: 05/30/2018 EKG Measurement Heart [id number] <Conclusion> Sinus tachycardia Minimal voltage criteria for LVH, may be normal variant Cannot rule out Anterior infarct, age undetermined Abnormal ECG
[2018-05-31 13:29] VITALS: O2SAT 98
== END 2018-05-30 16:39 | disposition home or self-care (01) ==
LOC: C.ER 11:06
DX: J40 Bronchitis, not specified as acute or chronic (principal); E87.6 Hypokalemia
CPT/HCPCS: 71046; 80053; 81001; 84443; 85025; 85378; 93005; 94640; 96374; 99285; J2930

== ENCOUNTER 2019-01-20 17:38 | Emergency (ER) | payer SELFPAY ==
[2019-01-20 17:39] VITALS: BMI 28.5
[2019-01-20 17:54] VITALS: RESP 20
[2019-01-20 18:32] LABS: BASO # 0.1 K/uL (0.0-0.2); BASO % 0.4 % (0.0-2.0); EOS # 0.1 K/uL (0.0-0.7); EOS % 0.7 % (0.0-4.0); LYMPH # 2.8 K/uL (1.0-4.3); LYMPH % 23.2 % (20.0-40.0); MEAN CELL VOLUME 86.1 fL (81.0-99.0); MEAN CORPUSCULAR HEMOGLOBIN 28.2 pg (27.0-31.0); MEAN CORPUSCULAR HGB CONC 32.8 g/dL (33.0-37.0); MEAN PLATELET VOLUME 9.1 fL (7.2-11.7); MONO # 0.9 K/uL (0.0-0.8); MONO % 7.9 % (0.0-10.0); NEUT # 8.1 K/uL (1.8-7.0); NEUT % 67.8 % (50.0-75.0); RBC 4.95 Mil/uL (3.80-5.20); RED CELL DISTRIBUTION WIDTH 13.3 % (11.5-14.5)
[2019-01-20 18:33] LABS: HCG,QUALITATIVE URINE POSITIVE (NEGATIVE)
[2019-01-20 18:39] LABS: SQUAMOUS EPITHIAL 1 /hpf (0-5); URINE BACTERIA FEW (<OCC); URINE BILIRUBIN NEGATIVE (NEGATIVE); URINE BLOOD 1+ (NEGATIVE); URINE CLARITY Hazy (Clear); URINE COLOR Yellow (YELLOW); URINE GLUCOSE (UA) NORMAL (Normal); URINE LEUKOCYTE ESTERASE NEG Leu/uL (Negative); URINE PROTEIN NEGATIVE (NEGATIVE); URINE UROBILINOGEN NORMAL mg/dL (0.2-1.0)
[2019-01-20 18:45] LABS: ALB/GLOB RATIO 1.6 (1.0-2.1); ALBUMIN 4.3 g/dL (3.5-5.0); BLOOD UREA NITROGEN 8 mg/dL (7-17); CALCIUM 9.2 mg/dl (8.6-10.4); GFR NON-AFRICAN AMERICAN > 60; LIPASE 63 U/L (23-300)
[2019-01-20] MEDS ORDERED: Sodium Chloride 0.9% 1,000 ML IV ONE (19:07)
--- NOTE | 2019-01-20 19:09 | C.PDOC ---
History Of Present Illness 28 y/o female, who is a few weeks , comes in complaining of abdominal pain for the past 2 days. Patient reports of some mild dysuria but denies vaginal bleeding. Also denies, vomiting, diarrhea, fever, chills, or other sympt oms. Chief Complaint (Nursing): Abdominal Pain History Per: Patient History/Exam Limitations: no limitations Onset/Duration Of Symptoms: Days Current Symptoms Are (Timing): Still Present Past Medical History Reviewed: Historical Data, Nursing Documentation, Vital Signs Vital Signs: Last Vital Signs Temp 98.5 F 01/20/19 17:51 Pulse 85 01/20/19 17:51 Resp 20 01/20/19 17:51 BP 133/74 01/20/19 17:51 Pulse Ox 100 01/20/19 17:51 - Medical History PMH: Denies: Depression, Diabetes, HTN - [facility] Procedures INTRODUCE OF OTH THERAP SUBST INTO FEM REPROD, VIA OPENING (06/22/17) Family History: States: No Known Family Hx - Social History Hx Alcohol Use: No Hx Substance Use: No - Immunization History Hx Tetanus Toxoid Vaccination: No Hx Influenza Vaccination: No Hx Pneumococcal Vaccination: No Review Of Systems Except As Marked, All Systems Reviewed And Found Negative. Constitutional: Negative for: Fever, Chills Gastrointestinal: Positive for: Abdominal Pain. Negative for: Vomiting, Diarrhea Genitourinary: Positive for: Dysuria. Negative for: Hematuria, Vaginal Discharge, Vaginal Bleeding Physical Exam - Physical Exam Appears: Non-toxic, No Acute Distress Skin: Warm, Dry Head: Atraumatic, Normacephalic Eye(s): bilateral: Normal Inspection Oral Mucosa: Moist Neck: Supple Cardiovascular: Rhythm Regular, No Murmur Respiratory: Normal Breath Sounds, No Rales, No Rhonchi, No Wheezing Gastrointestinal/Abdominal: Soft, Tenderness (mild hypogastric tenderness), No Guarding, No Rebound Extremity: Bilateral: Atraumatic, Normal Color And Temperature, Normal ROM Neurological/Psych: Oriented x3, Normal Speech ED Course And Treatment - Laboratory Results Result Diagrams: 01/20/19 18:25 01/20/19 18:25 Lab Results: Total Bilirubin 0.4 mg/dL (0.2-1.3) 01/20/19 18:25 Total Protein 7.0 g/dL (6.3-8.3) 01/20/19 18:25 Albumin 4.3 g/dL (3.5-5.0) 01/20/19 18:25 Globulin 2.7 gm/dL (2.2-3.9) 01/20/19 18:25 Albumin/Globulin Ratio 1.6 (1.0-2.1) 01/20/19 18:25 Lipase 63 U/L (23-300) 01/20/19 18:25 Urine Color Yellow (YELLOW) 01/20/19 18:25 Urine Clarity Hazy (Clear) 01/20/19 18:25 Urine pH 5.0 (5.0-8.0) 01/20/19 18:25 Ur Specific [place] 1.024 (1.003-1.030) 01/20/19 18:25 Urine Protein Negative mg/dL (NEGATIVE) 01/20/19 18:25 Urine Glucose (UA) Normal mg/dL (Normal) 01/20/19 18:25 Urine Ketones Negative mg/dL (NEGATIVE) 01/20/19 18:25 Urine Blood 1+ (NEGATIVE) H 01/20/19 18:25 Urine Nitrate Negative (NEGATIVE) 01/20/19 18:25 Urine Bilirubin Negative (NEGATIVE) 01/20/19 18:25 Urine Urobilinogen Normal mg/dL (0.2-1.0) 01/20/19 18:25 Ur Leukocyte Esterase Neg Ney/uL (Negative) 01/20/19 18:25 Urine WBC (Auto) 1 /hpf (0-5) 01/20/19 18:25 Urine RBC (Auto) 93 /hpf (0-3) H 01/20/19 18:25 Ur Squamous Epith Cells 1 /hpf (0-5) 01/20/19 18:25 Urine Bacteria Few (<OCC) H 01/20/19 18:25 Urine HCG, Qual Positive (NEGATIVE) 01/20/19 18:25 Urine HCG, Qual Positive (NEGATIVE) 01/20/19 18:25 O2 Sat by Pulse Oximetry: 100 (RA) Pulse Ox Interpretation: Normal - CT Scan/US pelvic US Other Rad Studies (CT/US): Read By Radiologist, Radiology Report Reviewed CT/US Interpretation: EXAM: US Obstetrical, Complete <14 weeks. CLINICAL HISTORY: ABD PAIN. TECHNIQUE: Transvaginal and transabdominal imaging of the maternal pelvis and a <14 week gestation with image documentation. COMPARISON: None provided. FINDINGS: GESTATION: An early single living IUP is demonstrated estimated to be 5 weeks and 4 days in age, +/- 3 days. cardiac rate 93 BPM. A yolk sac is noted which measured 2.9 mm in transverse diameter. UTERUS: Unremarkable. No myometrial mass. CERVIX: Closed. Unremarkable. OVARIES: Unremarkable. No mass. A tiny corpus luteum cyst noted in the left ovary. FREE FLUID: No free fluid. IMPRESSION: 1. Single living intrauterine . No acute abnormality. 2. The WINSTON is 09/18/2019. . Electronically signed on Jan 20, 2019 10:04:29 PM EDT by: Robbie Sher M.D., RALF Certified By ABR & CBCCT. Fellowship Trained MRI and CT Specialist Medical Decision Making Medical Decision Making: Plan: --Labs --Pelvis US --UA --IV fluids Disposition Counseled Patient/Family Regarding: Diagnosis - Disposition Referrals: [facility] [Outside] Disposition: HOME/ ROUTINE Disposition Time: 23:02 Condition: GOOD Prescriptions: Acetaminophen [Tylenol 325mg tab] 650 mg PO Q6 #20 tab Nitrofurantoin Macrocrystals [Macrobid] 1 cap PO BID #14 cap Instructions: Urinary Tract Infections in Adults, Round Ligament Pain Forms: [facility] (Hungarian), Gen Discharge Inst Albanian Print Language: PARAGUAYAN - POA Present On Arrival: None - Clinical Impression Clinical Impression: Round ligament pain, UTI (urinary tract infection) during - Scribe Statement The provider has reviewed the documentation as recorded by the Tatyana Barone Provider Attestation: All medical record entries made by the Tatyana were at my direction and personally dictated by me. I have reviewed the chart and agree that the record accurately reflects my personal performance of the history, physical exam, medical decision making, and the department course for this patient. I have also personally directed, reviewed, and agree with the discharge instructions and disposition.
[2019-01-20 19:12] LABS: ALT/SGPT 9 U/L (9-52); AST/SGOT 24 U/L (14-36)
[2019-01-20] MEDS ORDERED: Sodium Chloride 0.9% 1,000 ML ONE (19:42)
[2019-01-20 22:41] VITALS: BP 117/72; PULSE 77; TEMP 98.8
[2019-01-20 23:04] VITALS: O2SAT 100
--- NOTE | 2019-01-21 10:34 | US ---
Pelvic ultrasound HISTORY: . Pain. COMPARISON: None available. TECHNIQUE: Real-time sonography was performed through the pelvis utilizing transabdominal and transvaginal technique. FINDINGS: Uterus: 8.9 x 5.5 x 6.1 centimeters. Heterogeneous echotexture. Anteverted. Cervix is closed measuring to 3.9 centimeters. Intrauterine noted. Intrauterine gestational sac measuring 1.16 centimeters corresponding to a gestational age of 5 weeks and 2 days. Yolk sac identified. [place]-rump length measures 2.4 millimeters corresponding to a gestational age of 5 weeks and 5 days. heart rate of 93 beats per minute. No free fluid in the pelvic cul-de-sac. Right ovary: 2.4 x 2.0 x 1.9 centimeters. Normal flow. Left ovary: 2.4 x 2.2 x 2.2 centimeters. Normal flow. Heterogeneous probable corpus luteal cyst measuring 2.1 x 1.8 x 1.6 centimeters. IMPRESSION: Intrauterine corresponding to a gestational age of approximately 5 weeks and 5 days by crown-rump length of 2.4 millimeters. heart rate of 93 beats per minute. Clinical correlation. Heterogeneous probable left ovarian corpus luteal cyst measuring 2.1 centimeters. Limited 1st trimester ultrasound for viability purposes only. Continued interval followup with serial ultrasound, serial HCG levels, and gynecological consultation would be helpful if clinically indicated. A preliminary report was generated at 10:04 p.m. on 01/20/[address] Robbie Sher from [facility]
== END 2019-01-20 23:15 | disposition home or self-care (01) ==
LOC: C.ER 17:38
DX: O23.41 Unspecified infection of urinary tract in pregnancy, first trimester (principal); O26.891 Other specified pregnancy related conditions, first trimester; R10.2 Pelvic and perineal pain; Z3A.01 Less than 8 weeks gestation of pregnancy
CPT/HCPCS: 36415; 76805; 76817; 80053; 81001; 83690; 84702; 84703; 85025; 86850; 86900; 99284; J7030

== ENCOUNTER 2019-01-29 10:07 | Emergency (ER) | payer OTHER ==
[2019-01-29 10:07] VITALS: BMI 28.5
[2019-01-29 11:32] LABS: SQUAMOUS EPITHIAL 5 /hpf (0-5); URINE BACTERIA RARE (<OCC); URINE BILIRUBIN NEGATIVE (NEGATIVE); URINE BLOOD 2+ (NEGATIVE); URINE CLARITY Hazy (Clear); URINE COLOR Yellow (YELLOW); URINE GLUCOSE (UA) NORMAL (Normal); URINE LEUKOCYTE ESTERASE 1+ Leu/uL (Negative); URINE PROTEIN 1+ mg/dL (NEGATIVE)
[2019-01-29] MEDS ORDERED: Sodium Chloride 0.9% 1,000 ML IV STA (11:39)
[2019-01-29] MEDS ORDERED: Sodium Chloride 0.9% 1,000 ML ONE (11:57)
[2019-01-29 12:06] LABS: BASO % 0.3 % (0.0-2.0); EOS % 0.2 % (0.0-4.0); HEMOGLOBIN 12.9 g/dL (11.0-16.0); LYMPH # 1.7 K/uL (1.0-4.3); LYMPH % 14.9 % (20.0-40.0); MEAN CELL VOLUME 87.1 fL (81.0-99.0); MEAN CORPUSCULAR HEMOGLOBIN 29.1 pg (27.0-31.0); MEAN CORPUSCULAR HGB CONC 33.5 g/dL (33.0-37.0); MONO # 0.6 K/uL (0.0-0.8); MONO % 5.1 % (0.0-10.0); NEUT # 9.2 K/uL (1.8-7.0); NEUT % 79.5 % (50.0-75.0); RBC 4.42 Mil/uL (3.80-5.20); RED CELL DISTRIBUTION WIDTH 13.2 % (11.5-14.5); WHITE BLOOD COUNT 11.5 K/uL (4.8-10.8)
[2019-01-29 12:13] LABS: INR 1.1; PROTHROMBIN TIME 12.2 SECONDS (9.7-12.2)
[2019-01-29 12:56] LABS: ALB/GLOB RATIO 1.6 (1.0-2.1); ALBUMIN 4.1 g/dL (3.5-5.0); ALT/SGPT 17 U/L (9-52); AST/SGOT 46 U/L (14-36); BLOOD UREA NITROGEN 7 mg/dL (7-17); GFR NON-AFRICAN AMERICAN > 60
--- NOTE | 2019-01-29 14:10 | C.PDOC ---
History Of Present Illness 28 y/o female presents to the ER complaining of diffuse abdominal pain with burning urination which has been present for the past 4 days. Patient states that has rash on her vaginal vulvar area.Denies having fever,chills, nausea, vom iting, hematuria, vaginal bleeding, and vaginal discharge. Time Seen by Provider: 01/29/19 10:25 Chief Complaint (Nursing): Female Genitourinary History Per: Patient History/Exam Limitations: no limitations Onset/Duration Of Symptoms: Days Current Symptoms Are (Timing): Still Present Severity: Moderate Past Medical History Reviewed: Historical Data, Nursing Documentation, Vital Signs Vital Signs: Last Vital Signs Temp 98.2 F 01/29/19 10:12 Pulse 82 01/29/19 10:12 Resp 16 01/29/19 10:12 BP 119/75 01/29/19 10:12 Pulse Ox 100 01/29/19 10:12 - Medical History PMH: No Chronic Diseases Denies: Depression, Diabetes, HTN Other Surgeries: Hx of surgeries - [facility] Procedures INTRODUCE OF OTH THERAP SUBST INTO FEM REPROD, VIA OPENING (06/22/17) Family History: States: No Known Family Hx - Social History Hx Alcohol Use: No Hx Substance Use: No - Immunization History Hx Tetanus Toxoid Vaccination: No Hx Influenza Vaccination: No Hx Pneumococcal Vaccination: No Review Of Systems Except As Marked, All Systems Reviewed And Found Negative. Constitutional: Negative for: Fever, Chills Gastrointestinal: Positive for: Abdominal Pain. Negative for: Nausea, Vomiting Genitourinary: Positive for: Dysuria, Rash. Negative for: Hematuria, Vaginal Discharge, Vaginal Bleeding Physical Exam - Physical Exam Appears: Non-toxic Skin: Normal Color, Warm, Dry Head: Atraumatic, Normacephalic Eye(s): bilateral: Normal Inspection Nose: Normal Oral Mucosa: Moist Neck: Supple Chest: Symmetrical Cardiovascular: Rhythm Regular Respiratory: Normal Breath Sounds, No Rales, No Rhonchi, No Wheezing Gastrointestinal/Abdominal: Soft, Tenderness (diffuse tenderness), No Guarding, No Rebound Pelvic: No Vaginal Bleeding, Vaginal Discharge (white cottage cheese like discharge), Other (erythema to vulva) Neurological/Psych: Oriented x3, Normal Speech ED Course And Treatment - Laboratory Results Result Diagrams: 01/29/19 11:57 01/29/19 11:57 Lab Results: PT 12.2 SECONDS (9.7-12.2) 01/29/19 11:57 INR 1.1 01/29/19 11:57 APTT 30 SECONDS (21-34) 01/29/19 11:57 Total Bilirubin 0.4 mg/dL (0.2-1.3) 01/29/19 11:57 AST 46 U/L (14-36) H D 01/29/19 11:57 ALT 17 U/L (9-52) 01/29/19 11:57 Alkaline Phosphatase 76 U/L (38-126) 01/29/19 11:57 Total Protein 6.5 g/dL (6.3-8.3) 01/29/19 11:57 Albumin 4.1 g/dL (3.5-5.0) 01/29/19 11:57 Globulin 2.5 gm/dL (2.2-3.9) 01/29/19 11:57 Albumin/Globulin Ratio 1.6 (1.0-2.1) 01/29/19 11:57 Urine Color Yellow (YELLOW) 01/29/19 11:18 Urine Clarity Hazy (Clear) 01/29/19 11:18 Urine pH 5.0 (5.0-8.0) 01/29/19 11:18 Ur Specific [place] 1.028 (1.003-1.030) 01/29/19 11:18 Urine Protein 1+ mg/dL (NEGATIVE) H 01/29/19 11:18 Urine Glucose (UA) Normal mg/dL (Normal) 01/29/19 11:18 Urine Ketones Negative mg/dL (NEGATIVE) 01/29/19 11:18 Urine Blood 2+ (NEGATIVE) H 01/29/19 11:18 Urine Nitrate Negative (NEGATIVE) 01/29/19 11:18 Urine Bilirubin Negative (NEGATIVE) 01/29/19 11:18 Urine Urobilinogen 2.0 mg/dL (0.2-1.0) H 01/29/19 11:18 Ur Leukocyte Esterase 1+ Ney/uL (Negative) H 01/29/19 11:18 Urine WBC (Auto) 4 /hpf (0-5) 01/29/19 11:18 Urine RBC (Auto) 80 /hpf (0-3) H 01/29/19 11:18 Ur Squamous Epith Cells 5 /hpf (0-5) 01/29/19 11:18 Urine Bacteria Rare (<OCC) 01/29/19 11:18 Beta HCG, Quant 89265.00 mIU/ML 01/29/19 11:57 O2 Sat by Pulse Oximetry: 100 (RA) Pulse Ox Interpretation: Normal - CT Scan/US US Other Rad Studies (CT/US): Read By Radiologist, Radiology Report Reviewed CT/US Interpretation: Date of service: 01/29/2019. PROCEDURE: OB Pelvic Ultrasound. HISTORY: pain. LMP: 12/15/2018. COMPARISON: None available. FINDINGS: UTERUS: Gestational sac: Single live intrauterine gestation. Heart rate: 126 bpm. Gestational sac diameter measures 2.19 cm corresponding to 6 weeks and 5 days of gestational age. Yolk sac is visualized. pole measures 0.66 cm corresponding to 6 weeks and 4 days of gestational age. age (Ultrasound estimated): 6 weeks and 5 days. Jamilah-gestational hemorrhage: None. Date of delivery (Ultrasound estimated) : 09/19/2019. Uterus measures 11.5 x 5.7 x 6.7 cm. Anteverted and normal in size. CERVIX: Measures 4.2 cm. Long and closed. No cervical abnormality seen. RIGHT OVARY: Not visualized. LEFT OVARY: Measures 3.4 x 1.4 x 2.8 cm. No solid mass. Normal flow. FREE FLUID: None. OTHER FINDINGS: None. IMPRESSION: Single live intrauterine gestation with mean gestational age of 6 weeks and 5 days. The estimated date of delivery by ultrasound is 09/19/2019. The ultrasound dates correspond with the clinical dates. US 2 Other Rad Studies (CT/US): Read By Radiologist, Radiology Report Reviewed CT/US Interpretation: Date of service: 01/29/2019. HISTORY: Abdominal pain. COMPARISON: None. TECHNIQUE: Grayscale imaging was performed. FINDINGS: LIVER: Measures 14.0 cm. There is mild diffuse increased echogenicity of the liver parenchyma. No mass. No intrahepatic bile duct dilatation. GALLBLADDER: There are multiple gallstones. No wall thickening or pericholecystic fluid. The sonographic Carpenter's sign is negative. COMMON BILE DUCT: Measures 2.6 mm. No stones. No dilatation. PANCREAS: Unremarkable as visualized. No mass. No ductal dilatation. RIGHT KIDNEY: Measures 10.5cm. Normal echogenicity. No calculus, mass, or hydronephrosis. LEFT KIDNEY: Measures 10.4 cm. Normal echogenicity. No calculus, mass, or hydronephrosis. SPLEEN: Normal in size and contour. No mass. AORTA: No aneurysmal dilatation. IVC: Unremarkable. OTHER FINDINGS: None. IMPRESSION: Cholelithiasis. No biliary dilatation. Fatty liver. Progress Note: Labs,UA, and US-OB ordered.Patient treated with IV Fluids. On re- evaluation she feels better and is stable to be d/c home with PMD follow up. Disposition - Disposition Disposition: HOME/ ROUTINE Disposition Time: 17:00 Condition: STABLE Additional Instructions: Follow up with OBGYN within 1-2 days. Return to ED if feel worse. 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 - Scribe Statement The provider has reviewed the documentation as recorded by the Tatyana Guerrero Provider Attestation All medical record entries made by the Tatyana were at my direction and personally dictated by me. I have reviewed the chart and agree that the record accurately reflects my personal performance of the history, physical exam, medical decision making, and the department course for this patient. I have also personally directed, reviewed, and agree with the discharge instructions and disposition.
[2019-01-29 14:43] VITALS: RESP 18
--- NOTE | 2019-01-29 14:48 | US ---
Date of service: 01/29/2019 HISTORY: Abdominal pain COMPARISON: None. TECHNIQUE: Grayscale imaging was performed. FINDINGS: LIVER: Measures 14.0 cm. There is mild diffuse increased echogenicity of the liver parenchyma. No mass. No intrahepatic bile duct dilatation. GALLBLADDER: There are multiple gallstones. No wall thickening or pericholecystic fluid. The sonographic Carpenter's sign is negative. COMMON BILE DUCT: Measures 2.6 mm. No stones. No dilatation. PANCREAS: Unremarkable as visualized. No mass. No ductal dilatation. RIGHT KIDNEY: Measures 10.5cm. Normal echogenicity. No calculus, mass, or hydronephrosis. LEFT KIDNEY: Measures 10.4 cm. Normal echogenicity. No calculus, mass, or hydronephrosis. SPLEEN: Normal in size and contour. No mass. AORTA: No aneurysmal dilatation. IVC: Unremarkable. OTHER FINDINGS: None. IMPRESSION: Cholelithiasis. No biliary dilatation. Fatty liver.
--- NOTE | 2019-01-29 14:56 | US ---
Date of service: 01/29/2019 PROCEDURE: OB Pelvic Ultrasound HISTORY: pain LMP: 12/15/2018 COMPARISON: None available. FINDINGS: UTERUS: Gestational sac: Single live intrauterine gestation. Heart rate: 126 bpm. Gestational sac diameter measures 2.19 cm corresponding to 6 weeks and 5 days of gestational age. Yolk sac is visualized. pole measures 0.66 cm corresponding to 6 weeks and 4 days of gestational age. age (Ultrasound estimated): 6 weeks and 5 days Jamilah-gestational hemorrhage: None. Date of delivery (Ultrasound estimated) : 09/19/2019 Uterus measures 11.5 x 5.7 x 6.7 cm. Anteverted and normal in size. CERVIX: Measures 4.2 cm. Long and closed. No cervical abnormality seen. RIGHT OVARY: Not visualized. LEFT OVARY: Measures 3.4 x 1.4 x 2.8 cm. No solid mass. Normal flow. FREE FLUID: None. OTHER FINDINGS: None. IMPRESSION: Single live intrauterine gestation with mean gestational age of 6 weeks and 5 days. The estimated date of delivery by ultrasound is 09/19/2019. The ultrasound dates correspond with the clinical dates.
[2019-01-29 17:37] VITALS: BP 119/75; PULSE 85; TEMP 98.7
[2019-01-29 18:54] VITALS: O2SAT 100
== END 2019-01-29 17:39 | disposition home or self-care (01) ==
LOC: C.ER 10:07
DX: O99.611 Diseases of the digestive system complicating pregnancy, first trimester (principal); K80.20 Calculus of gallbladder without cholecystitis without obstruction; O23.41 Unspecified infection of urinary tract in pregnancy, first trimester; Z3A.01 Less than 8 weeks gestation of pregnancy
CPT/HCPCS: 76700; 76801; 80053; 81001; 81025; 84702; 85025; 85610; 85730; 86850; 86900; 87086; 96360; 99285; J7030

== ENCOUNTER 2019-03-10 19:00 | Emergency (ER) | payer MEDICAID ==
[2019-03-10 19:00] VITALS: BMI 28.5
[2019-03-10 19:15] VITALS: RESP 16; O2SAT 100
[2019-03-10] MEDS ORDERED: Sodium Chloride 0.9% 1,000 ML IV ONE (19:40)
--- NOTE | 2019-03-10 19:47 | C.PDOC ---
History Of Present Illness 28 year old female who is currently 12 weeks presents to the ED complaining of lower abdominal crampy pain and right upper quadrant pain for one day. Associated symptoms include nausea and vomiting. Denies any fever, chills, headache, chest pain, shortness of breath, vaginal bleeding or back pain. Time Seen by Provider: 03/10/19 19:23 Chief Complaint (Nursing): Abdominal Pain History Per: Patient History/Exam Limitations: no limitations Onset/Duration Of Symptoms: Days (1) Current Symptoms Are (Timing): Still Present Location Of Pain/Discomfort: RUQ, Suprapubic Radiation Of Pain To:: None Associated Symptoms: Nausea, Vomiting. denies: Fever, Chills, Back Pain, Chest Pain Past Medical History Reviewed: Historical Data, Nursing Documentation, Vital Signs Vital Signs: Last Vital Signs Temp 98.0 F 03/10/19 19:07 Pulse 95 H 03/10/19 19:07 Resp 16 03/10/19 19:07 BP 125/80 03/10/19 19:07 Pulse Ox 100 03/10/19 19:07 - Medical History PMH: Gall Bladder Disease (GALLSTONES) Denies: Depression, Diabetes, HTN Other Surgeries: hx of surgeries - [facility] INTRODUCE OF OTH THERAP SUBST INTO FEM REPROD, VIA OPENING (06/22/17) Family History: States: No Known Family Hx - Social History Hx Alcohol Use: No Hx Substance Use: No - Immunization History Hx Tetanus Toxoid Vaccination: No Hx Influenza Vaccination: No Hx Pneumococcal Vaccination: No Review Of Systems Except As Marked, All Systems Reviewed And Found Negative. Constitutional: Negative for: Fever, Chills Cardiovascular: Negative for: Chest Pain Respiratory: Negative for: Shortness of Breath Gastrointestinal: Positive for: Nausea, Vomiting, Abdominal Pain Genitourinary: Negative for: Dysuria, Hematuria, Vaginal Bleeding Musculoskeletal: Negative for: Back Pain Neurological: Negative for: Headache Physical Exam - Physical Exam Appears: Non-toxic, No Acute Distress, Other (afebrile ) Skin: Warm, Dry, No Rash Head: Normacephalic Eye(s): bilateral: Normal Inspection Nose: Normal Oral Mucosa: Moist Neck: Supple Chest: Symmetrical Cardiovascular: Rhythm Regular, No Murmur, Other (mild tachycardic at 95bpm ) Respiratory: Normal Breath Sounds, No Rales, No Rhonchi Gastrointestinal/Abdominal: Soft, Tenderness (mild lower suprapubic tenderness ), No Distention, No Guarding, No Rebound, Other (gravid) Neurological/Psych: Oriented x3, Normal Speech Gait: Steady ED Course And Treatment - Laboratory Results Result Diagrams: 03/10/19 19:51 03/10/19 19:51 O2 Sat by Pulse Oximetry: 100 (RA) Pulse Ox Interpretation: Normal Medical Decision Making Medical Decision Making: Differentials: Round ligament pin vs. UTI vs. Cholelithiasis Plan - Bloodwork - UA - IV fluids - Tylenol 650mg PO Reviewed prior records: 01/29/19 Ultrasound in the ED shows alive IUP. Second ultrasound shows galls tones but no gallbladder wall thickening. Beta HCG from 01/29/19 was 6309.00. Urine shows no UTI. Patient reports improvement after taking Tylenol. Pt diagnosed with round ligament pain. Patient given follow up instructions. Instructed to return to ER if symptoms worsen or new symptoms arise. Disposition - Disposition Disposition: HOME/ ROUTINE Disposition Time: 21:02 Condition: STABLE Instructions: Round Ligament Pain Forms: [facility] ([place]), Gen Discharge Inst [place] - POA Present On Arrival: None - Clinical Impression Clinical Impression: Round ligament pain, Cholelithiasis - Scribe Statement The provider has reviewed the documentation as recorded by the Scribpedro Feldman All medical record entries made by the Fuentesibe were at my direction and personally dictated by me. I have reviewed the chart and agree that the record accurately reflects my personal performance of the history, physical exam, medical decision making, and the department course for this patient. I have also personally directed, reviewed, and agree with the discharge instructions and disposition.
[2019-03-10 20:06] LABS: BASO % 0.3 % (0.0-2.0); EOS # 0.4 K/uL (0.0-0.7); EOS % 3.3 % (0.0-4.0); HEMOGLOBIN 12.9 g/dL (11.0-16.0); LYMPH # 1.8 K/uL (1.0-4.3); LYMPH % 13.5 % (20.0-40.0); MEAN CELL VOLUME 86.4 fL (81.0-99.0); MEAN CORPUSCULAR HEMOGLOBIN 29.1 pg (27.0-31.0); MEAN CORPUSCULAR HGB CONC 33.7 g/dL (33.0-37.0); MEAN PLATELET VOLUME 9.6 fL (7.2-11.7); MONO % 7.5 % (0.0-10.0); NEUT % 75.4 % (50.0-75.0); RBC 4.42 Mil/uL (3.80-5.20); RED CELL DISTRIBUTION WIDTH 13.5 % (11.5-14.5); WHITE BLOOD COUNT 13.3 K/uL (4.8-10.8)
[2019-03-10 20:11] LABS: SQUAMOUS EPITHIAL 18 /hpf (0-5); URINE BACTERIA OCC (<OCC); URINE BILIRUBIN NEGATIVE (NEGATIVE); URINE BLOOD 2+ (NEGATIVE); URINE CLARITY Hazy (Clear); URINE COLOR Yellow (YELLOW); URINE GLUCOSE (UA) NORMAL (Normal); URINE LEUKOCYTE ESTERASE NEG Leu/uL (Negative); URINE PROTEIN 1+ mg/dL (NEGATIVE); URINE UROBILINOGEN NORMAL mg/dL (0.2-1.0)
[2019-03-10 20:20] LABS: BLOOD UREA NITROGEN 8 mg/dL (7-17); CALCIUM 9.1 mg/dl (8.6-10.4); GFR NON-AFRICAN AMERICAN > 60
[2019-03-10 20:22] LABS: ALB/GLOB RATIO 1.3 (1.0-2.1); ALBUMIN 4.3 g/dL (3.5-5.0); ALT/SGPT 17 U/L (9-52); AST/SGOT 49 U/L (14-36)
[2019-03-10 21:54] VITALS: BP 121/82; PULSE 86; TEMP 98.3
== END 2019-03-10 21:54 | disposition home or self-care (01) ==
LOC: C.ER 19:00
DX: O99.611 Diseases of the digestive system complicating pregnancy, first trimester (principal); K80.20 Calculus of gallbladder without cholecystitis without obstruction; O26.891 Other specified pregnancy related conditions, first trimester; R10.2 Pelvic and perineal pain; Z3A.12 12 weeks gestation of pregnancy
CPT/HCPCS: 80053; 81001; 84702; 85025; 96360; 99284; J7030